=== PATIENT | female | born 1955 | race Caucasian/White ===

== ENCOUNTER 2018-09-24 07:07 | Inpatient (IN) ==
--- NOTE | 2018-08-28 12:30 | PAT Medication Instructions ---
Medication Instructions Date of Service August 28, 2018 Home Medications alendronate 1 tab PO WK aspirin [Ecotrin] 2 - 3 tab PO TID lisinopril 10 mg PO HS pravastatin 40 mg PO HS Continue as directed alendronate 1 tab PO WK ASK your prescriber and surgeon aspirin [Ecotrin] 2 - 3 tab PO TID Take morning of surgery NOTHING TO EAT OR DRINK AFTER MIDNIGHT Take evening before surgery lisinopril 10 mg PO HS pravastatin 40 mg PO HS Other Notes If you have any questions please call us at [phone] or [phone] or [phone] or [phone]
--- NOTE | 2018-08-28 14:18 | Anesthesiology Consultation ---
Date of Service August 28, 2018 Assessment & Plan (1) Encounter for pre-operative examination: Chart Review Chart Review: Acceptable Risk for Surgery and Patient seen in Pre Admission Testing Consults Requested medical ((09/03)) Patient was seen on 09/03/18 for pre-op evaluation. She was started on Keflex for UTI. Note states "Patient is appropriate risk for anticipated surgery." Teaching & Discussion Pre-Anesthesia Teaching/Discussion Notes: Instructed NPO after midnight before surgery, except medications with 15 cc of water. Medication instructions provided according to the PAT guidelines. History Surgery Operation Date: 09/24/18 12:55 Proposed Procedures p Left Anterior Total Hip Arthroplasty - Dustin Madrigal DO Height/Weight Height: 5 ft 3 in Weight: 83.1 kg Allergies Allergy/AdvReac Type Severity Reaction Status Date / Time No Known Allergies Allergy Verified 08/14/18 11:49 Medications Home Medications Medication Instructions Recorded Confirmed Last Taken alendronate 1 tab PO WK 08/14/18 08/14/18 08/11/18 aspirin [Ecotrin] 2 - 3 tab PO TID 08/14/18 08/14/18 08/14/18 lisinopril 10 mg PO HS 08/14/18 08/14/18 08/13/18 pravastatin 40 mg PO HS 08/14/18 08/14/18 08/13/18 Past Medical History Medical History History of Graves' disease Hyperlipidemia Hypertension Kidney stones NO PROBLEMS WITH Osteopenia Past Surgical History Surgical History History of removal of cyst BACK OF NECK Past Anesthesia History No Hx of Anesthesia Complications and No Family Hx of Anesthesia Complications History of PONV No Motion Sickness Screening History of Motion Sickness: Yes Social History Smoking Status: Former smoker tobacco type: cigarettes Smoking cigarettes per day: QUIT 20 YRS AGO (SMOKED 1PPD X 25 YEARS) Do You Dip or Chew Tobacco: No Hx Alcohol Use: Yes Alcohol type: wine alcohol intake frequency: a few times a month Hx Substance Use: No substance use type: does not use Exercise / Class Metabolic Activity II 4-5 Yardwork/Stairs/Walk up hill (Works out 30 minutes 3-5 x week. Able to climb FOS. Denies CP or SOB. ) Review of Systems Patient denies chest pain, shortness of breath, dyspnea on exertion, reflux, cough, wheezing, palpitations. +joint pain (hips) Physical Exam Vital Signs BP: 131/79 P: 74 R: 18 T: 98.1 SPO2: 96% on RA Constitutional + obese ENMT Mouth: + dentures (Upper) Thyromental Distance: > or= 3.5 Finger Breadths (3.5) Mallampati Class: I Bottom partial Neck normal visual inspection and trachea midline; neck extension not limited Respiratory normal respiratory effort Auscultation: lungs clear to auscultation bilaterally Cardiovascular Rate/Rhythm: regular rate and regular rhythm Heart Sounds: no murmur Vessels: no carotid bruit Neurologic moves all extremities Psychiatric Orientation: alert and oriented x 3 Testing Electrocardiogram Date: 08/28/18 Findings: + NSR @ (70) Sinus arrhythmia Chest X-Ray Date: 08/28/18 Findings: + NAD Laboratory Results 08/28/18 14:38 08/28/18 14:38 Blood Type A Positive 08/28/18 14:38 Antibody Screen NEGATIVE 08/28/18 14:38 PT 10.2 Seconds (9.0-12.0) 08/28/18 14:38 INR 1.0 (0.9-1.1) 08/28/18 14:38 APTT 24.1 Seconds (21.0-31.0) 08/28/18 14:38 Hemoglobin A1c 5.5 % (4.5-5.6) 08/28/18 14:38 Urine Color Yellow 08/28/18 Unknown Urine Appearance Clear (Clear) 08/28/18 Unknown Urine pH 5.0 (4.5-7.5) 08/28/18 Unknown Ur Specific [place] 1.020 (1.000-1.030) 08/28/18 Unknown Urine Protein Negative (Negative) 08/28/18 Unknown Urine Glucose (UA) Negative (Negative) 08/28/18 Unknown Urine Ketones Negative (Negative) 08/28/18 Unknown Urine Nitrite Positive (Negative) H 08/28/18 Unknown Ur Leukocyte Esterase 1+ (Negative) H 08/28/18 Unknown Urine WBC (Auto) >30 /hpf (0-5) H 08/28/18 Unknown Urine RBC (Auto) 0-4 /hpf (0-4) 08/28/18 Unknown U Hyaline Cast (Auto) 1-5 /lpf (0-5) 08/28/18 Unknown U Epithel Cells (Auto) 0-5 /lpf (0-5) 08/28/18 Unknown Urine Bacteria (Auto) 2+ (Negative) H 08/28/18 Unknown 08/28/18 Unknown Urine Culture - Final Urine,Clean Catch Escherichia coli Surgeon's office made aware of UTI.
--- NOTE | 2018-08-28 15:06 | XRay Report ---
XR chest Pre-admission PA/Lat CLINICAL HISTORY: 63 years-old Female presenting with preoperative evaluation. TECHNIQUE: PA and lateral views of the chest were obtained. COMPARISON: None. FINDINGS: Atherosclerosis of the aortic arch. Cardiac silhouette normal in size. Lungs and pleural spaces clear . Degenerative changes of the thoracic spine. Upper abdomen normal. IMPRESSION: 1. No acute cardiopulmonary disease. Electronically signed by: Tony Skelton M.D. 08/28/2018 3:05 PM
[2018-08-28 15:16] LABS: Basophils # (auto) 0.02 K/uL (0-0.2); Basophils % (auto) 0.4 %; Eosinophils # (auto) 0.05 K/uL (0-0.5); Hematocrit (blood only) 39.8 % (37-47); Hemoglobin 13.2 g/dL (12.0-16.0); Immature Granulocytes # (auto) 0.01 K/uL (0.00-0.02); Immature Granulocytes % (auto) 0.2 %; Lymphocytes # (auto) 1.62 K/uL (1.2-3.4); Lymphocytes % (auto) 31.2 %; Mean Corpuscular Hgb Conc 33.2 g/dL (32-36); Mean Corpuscular Volume 93.6 fL (80-100); Mean Platelet Volume 11.4 fL (7.4-10.4); Monocytes # (auto) 0.31 K/uL (0.11-0.59); Neutrophils # (auto) 3.18 K/uL (1.4-6.5); Neutrophils % (auto) 61.2 %; Platelet Count 187 K/uL (130-400); RDW Coefficient of Variation 13.6 % (11.5-14.5); RDW Standard Deviation 46.9 fL (36.4-46.3); Red Blood Count 4.25 M/uL (4.2-5.4); White Blood Count 5.19 K/uL (4.8-10.8)
[2018-08-28 15:23] LABS: Appearance Urine Clear (Clear); Bacteria Urine Automated 2+ (Negative); Bilirubin Urine Negative (Negative); Blood Urine 1+ (Negative); Color Urine Yellow; Epithelial Cell Urine Auto 0-5 /lpf (0-5); Glucose Urine UA Negative (Negative); Ketones Urine Negative (Negative); Leukocyte Esterase Urine 1+ (Negative); Nitrite Urine Positive (Negative); Protein Urine Negative (Negative); RBC Urine Automated 0-4 /hpf (0-4); Urobilinogen Urine Negative (Negative); WBC Urine Automated >30 /hpf (0-5)
[2018-08-28 15:25] LABS: Albumin Level 3.9 gm/dl (3.4-5.0); BUN Creatinine Ratio 19.6 (10-20); Calcium 8.8 mg/dl (8.5-10.1); Creatinine Clr Calc Pharmacy 68.4 ml/min; Est GFR (African American) 83.3; Est GFR (Non-African American) 71.9; Potassium 3.9 mmol/L (3.5-5.1)
[2018-08-28 15:27] LABS: Partial Thromboplastin Ratio 0.9; Partial Thromboplastin Time 24.1 Seconds (21.0-31.0); Prothrombin Time 10.2 Seconds (9.0-12.0)
[2018-08-29 05:49] LABS: Estimated Average Glucose 111 mg/dl; Hemoglobin A1C 5.5 % (4.5-5.6)
--- NOTE | 2018-09-22 13:12 | History & Physical Report ---
Date of Service September 22, 2018 Assessment & Plan (1) Degenerative joint disease (DJD) of hip: I have indicated the patient for left anterior total hip replacement. The risks, benefits and complications of surgery were explained to the patient which include but not limited to infection, acute blood loss, DVT/PE, injury to nerves, vessels, bone, soft tissue, arthrofibrosis, chronic pain, failure of the prosthesis, hip dislocation, leg length discrepancy, need for additional surgery, cardiac and pulmonary events and . The patient wished to proceed with surgery and informed consent was obtained at this time. We will plan for ASA 325 BID post-operatively for DVT prophylaxis. Upon discharge the patient will be discharged home with home health services. Appropriate clearances by PCP were obtained. UTI during pre-op tx by PCP with oral abx. History of Present Illness Chief Complaint: Left hip pain/DJD Primary Care Provider: CARLIE PCP The patient is a 63 year old female who presents with complaints of severe left hip pain and DJD. The patient has failed outpatient conservative treatments to this point which included NSAIDs, IA corticosteroid inj, home exercise/walking program. The patient's pain and limited function have progressed to the point where they severely hinder their activities of daily living and they no longer tolerate exercise programs. They are requesting to proceed with total hip replacement surgery. Allergies Allergy/AdvReac Type Severity Reaction Status Date / Time No Known Allergies Allergy Verified 08/14/18 11:49 Home Medications Home Medications Medication Instructions Recorded Confirmed Type alendronate 1 tab PO WK 08/14/18 08/14/18 History aspirin [Ecotrin] 2 - 3 tab PO TID 08/14/18 08/14/18 History lisinopril 10 mg PO HS 08/14/18 08/14/18 History pravastatin 40 mg PO HS 08/14/18 08/14/18 History Past Med/Surg History Medical History History of Graves' disease Hyperlipidemia Hypertension Kidney stones NO PROBLEMS WITH Osteopenia Surgical History History of removal of cyst BACK OF NECK Social History Current Living Situation: Spouse Other Information That Helps Us Care for You: No Feels Safe at Home: Yes Smoking Status: Former smoker Tobacco Type: cigarettes Cigarettes per Day: QUIT 20 YRS AGO (SMOKED 1PPD X 25 YEARS) Do You Dip or Chew Tobacco: No Hx Alcohol Use: Yes Alcohol type: wine Alcohol Intake Frequency: a few times a month Hx Substance Use: No Beliefs That Will Affect Care: None Preferred Language: Finnish Communication Ability: Effective Underwriter Mortgage Loan Required: No Review of Systems All systems reviewed & are unremarkable except as noted in HPI & below Physical Exam 2 Physical Exam: LLE NVSI +EHL/FHL/TA/GS SILT grossly, +2 DP pulse, compartments soft NT, painful limited ROM of the hip. Constitutional: WD/WN, vitals as above Eyes: PERRL, conjunctivae normal, anicteric sclerae ENMT: external ear and nose normal, oropharynx normal Neck: trachea midline, no thyromegaly Respiratory: normal respiratory effort, lungs clear to auscultation Cardiovascular: RRR, no murmur, no edema Gastrointestinal (Abdomen): normal bowel sounds, soft, nontender, no hepatosplenomegaly Musculoskeletal: no cyanosis or clubbing, extremities motor strength 5/5 Skin: no rashes, warm and dry Neurologic: patellar DTR's 2+ bilat, sensation intact Psychiatric: A+Ox3, euthymic affect Lymphatic: no cervical or axillary lymphadenopathy Results & Data Diagnostic Findings Multiple views of the hip demonstrates severe DJD with complete loss of the joint space. +osteophytes, +sclerosis, +subchondral cysts.
[~2018-09-24 07:07] MED LIST: ACETAMINOPHEN 500 MG TAB PO SCH; CEFAZOLIN 2000MG 2,000 MG/15 ML SYR IV SCH; CeleBREX 200 MG CAP PO SCH; FAMOTIDINE 20 MG TAB PO SCH; LR 500ML BOLUS, THEN 15ML/HR IV SCH; METOCLOPRAMIDE HCL 10 MG TABLET PO SCH; ROPIVACAINE 0.5% HCL/PF 150 MG, BUPIVACAINE 0.5% MPF 30 ML, EPINEPHrine 30MG/30ML (OR U... INFIL SCH; TRANEXAMIC ACID 1,000 MG **IV Intra-op IV SCH; TRANEXAMIC ACID 1,000 MG **IV Pre-op IV SCH; dexAMETHasone 4 MG TAB PO SCH
[2018-09-24] MEDS ORDERED: BUPIVACAINE 0.5 % 5 MG/1 ML PF 10ML VIAL ONE (07:47)
--- NOTE | 2018-09-24 07:51 | History & Physical Bridge Note ---
Date of Service September 24, 2018 History & Physical Bridge Note I have examined the patient, reviewed the History & Physical and in the interval since the performance of the History & Physical I have noted the following changes of clinical significance: no changes noted
[2018-09-24] MEDS ORDERED: LIDOCAINE HCL 2% 2 ML VIAL/AMP(20MG/ML) INFIL ONE (08:18)
[2018-09-24] MEDS ORDERED: MIDAZOLAM HCL 1 MG/ML 2ML VIAL ONE ×3 (08:18→10:50)
[2018-09-24] MEDS ORDERED: ONDANSETRON INJ 2 MG/ML 2 ML VIAL ONE (08:18)
[2018-09-24] MEDS ORDERED: PROPOFOL IV EMULSION 10 MG/ML 20 ML VIAL IV ONE ×2 (08:18→10:25)
[2018-09-24] MEDS ORDERED: POVIDONE-IODINE OP SOLN 30 ML BTL ONE (09:22)
[2018-09-24] MEDS ORDERED: ORTHO JOINT ANESTHETIC ONE (09:22)
[2018-09-24] MEDS ORDERED: BACITRACIN INJ 50,000 UNIT VIAL ONE (09:22)
[2018-09-24] MEDS ORDERED: ATROPINE SULFATE 0.1 MG/ML 10ML SYR IV PRN (09:49)
[2018-09-24] MEDS ORDERED: ePHEDrine sulfate 50 MG/ML AMP IV PRN (09:49)
[2018-09-24] MEDS ORDERED: fentaNYL citrate 100 MCG/2 ML VIAL IV PRN (09:49)
[2018-09-24] MEDS ORDERED: ONDANSETRON INJ 2 MG/ML 2 ML VIAL IV PRN ×2 (09:49→13:17)
[2018-09-24] MEDS ORDERED: ePHEDrine sulfate 50 MG/ML SYR ONE (10:39)
--- NOTE | 2018-09-24 11:42 | Post Operative Brief Note ---
Immediate Post Op Note v1 Date of Surgery September 24, 2018 Pre & Post Diagnosis Operation Date: 09/24/18 09:35 Pre-Op Diagnosis: Left Hip Osteoarthritis Post-Op Diagnosis: Left Hip Osteoarthritis Procedure Operation Date: 09/24/18 09:35 Actual Procedures p Left Anterior Total Hip Arthroplasty(Left) - Dustin Madrigal DO Surgeon Dustin Madrigal DO Satellite Dish Repairer Gautam Muhammad Estimated Blood Loss 85 Findings Consistent with Post-Op Diagnosis Fluids 1200 Specimens femoral head Drains Hemovac Drain Anesthesia Type Spinal MAC Complications none Disposition Disposition: Recovery Room Overlapping Procedure I was present for: the critical portions of procedure. I was immediately available: during the entire case. Back up surgeon: was not required during procedure.
--- NOTE | 2018-09-24 12:00 | Operative Report ---
Post Operative Report Pre & Post Diagnosis Operation Date: 09/24/18 09:35 Pre-Op Diagnosis: Left Hip Osteoarthritis Post-Op Diagnosis: Left Hip Osteoarthritis Procedure Operation Date: 09/24/18 09:35 Actual Procedures p Left Anterior Total Hip Arthroplasty(Left) - Dustin Madrigal DO Surgeon Dustin Madrigal DO Director Public Gautam Muhammad Estimated Blood Loss 85 Findings Consistent with Post-Op Diagnosis Fluids 1200 cc Specimens Femoral head Anesthesia Type Spinal MAC Complications none Disposition Disposition: Recovery Room Indications The patient is a 63-year-old female who presents with severe progressive left hip DJD who has failed outpatient conservative treatments. I indicated the patient for a anterior total hip replacement and the risks and benefits were explained in detail which include but not limited to infection, bleeding, blood clot, damage to surrounding bone, nerves, vessels, soft tissue, hip dislocation, failure of the prosthesis, leg length discrepancy, need for additional surgery and . The patient agreed to proceed with replacement of the hip and informed consent was obtained. Appropriate clearances were obtained. Description of Procedure COMPONENTS USED: [employer] hip system: Acetabulum size 50, femur size 6 standard offset, femoral head 32-3, liner 32 x 50, acetabular screw 25. DESCRIPTION OF PROCEDURE: Following satisfactory spinal anesthesia, the patient was placed supine on the OR table. The right leg was placed in the well leg garrison and the left leg in the traction device. The left leg was prepared with ChloraPrep and draped sterilely. Following a surgical time-out, an anterior approach in the interval between the sartorius and tensor muscles was completed. Circumflex femoral vessels were identified, tied and ligated. The anterior capsular fat pad was removed and the capsulotomy was performed revealing the arthritic femoral neck and head. A femoral neck cut was made with reciprocating saw and the bone fragments removed. The acetabular self-retraining retractor was placed. Acetabular reaming was completed under fluoroscopic guidance, a 50 shell was impacted into an anatomic position and secured with a dome screw. Local anesthetic was placed and following irrigation, the polyethylene liner was placed. The femur was placed into position of external rotation, extension and adduction. Femoral canal was prepared up to the size 6 standard offset. Trial reduction with a -3 neck length head showed good soft tissue tension, leg lengths restored, and good fit and fill of the proximal canal using fluoroscopic landmarks. The hip was dislocated. The trial component was removed. The final implant was placed. The hip was irrigated with sterile saline soluation and reduced. A Betadine soak was performed. After 3 minutes, the hip was once more irrigated with copious sterile saline solution with bacitracin. Ifeoma-incisional soft tissue was injected utilizing [place] [employer] which includes a combination of Ropivicaine 0.5% 150mg, Bupivicaine 0.5%/Epinephrine 1:200,000 30ml, Toradol 30mg, Dexamethasone 4mg, Ketamine 10mg, Clonidine 100mcg and NSS 30ml solution. The capsule was then closed with 1-0 Vicryl interrupted figure of eight sutures. The fascia was closed with a running suture of #1 V-locl, the subcutaneous tissues with 2-0 Vicryl and the skin with a running subcuticular stitch of 3-0 V-Loc. Dermabond prineo and a dry dressing, Prevena incisional vac were applied. The patient tolerated the procedure well and was transported to PACU in stable condition. Due to the complex nature of the procedure, the entire surgery was performed with the operational assistance of Gautam Muhammad PA-C. The sound assistant, under direct supervision, was involved in the actual performance of all aspects of the surgical procedure including patient positioning, hemostasis, tissue retraction, instrument management and wound closure. I attest to the content of the Intraoperative Record and any orders documented therein. Any exceptions are noted below.
--- NOTE | 2018-09-24 12:44 | Anesthesiology Progress Note ---
Date of Service September 24, 2018 Anesthesia Post Procedure Vital Signs Vital Signs: Temp Pulse Pulse Pulse Resp BP BP 09/24/18 12:38 36.5 C 09/24/18 12:35 66 23 116/50 L 09/24/18 12:31 62 12 09/24/18 12:30 62 17 110/52 L 09/24/18 12:25 61 21 107/50 L 09/24/18 12:20 62 15 111/52 L 09/24/18 12:15 36.1 C L 63 66 17 106/54 L 113/50 L 09/24/18 12:14 64 14 113/50 L 09/24/18 08:00 37.1 C 76 20 137/50 L Pulse Ox 09/24/18 12:38 96 09/24/18 12:35 97 09/24/18 12:31 98 09/24/18 12:30 96 09/24/18 12:25 96 09/24/18 12:20 97 09/24/18 12:15 99 09/24/18 12:14 98 09/24/18 08:00 98 Pain Intensity Left Hip: Pain Intensity: 6 Notes Mental Status: alert / awake / arousable and participated in evaluation Nausea / Vomiting: adequately controlled Pain: adequately controlled Airway Patency, RR, SpO2: stable & adequate BP & HR: stable & adequate Hydration State: stable & adequate Neuraxial Anesthesia: was administered and sensory block is resolving Anesthetic Complications: no major complications apparent
--- NOTE | 2018-09-24 13:04 | XRay Report ---
XR hip 1V LT w pelvis CLINICAL HISTORY: Postoperative evaluation. COMPARISON: None FINDINGS: Alignment of the total left hip arthroplasty is anatomic. There is no fracture or unexpect ed radiopaque foreign body. There is an acetabular screw. IMPRESSION: Expected findings following total left hip arthroplasty. Electronically signed by: Slava Curry M.D. 09/24/2018 1:03 PM
[2018-09-24] MEDS ORDERED: OXYCODONE HCL IR 5 MG TAB (IMMEDIATE RELEASE) PO PRN (13:17)
[2018-09-24] MEDS ORDERED: BISACODYL 10 MG SUPP PR PRN (13:17)
[2018-09-24] MEDS ORDERED: MAGNESIUM HYDROXIDE SUSP 30 ML UDC PO PRN (13:17)
[2018-09-24] MEDS ORDERED: HYDROmorphone INJ 0.5 MG/0.5 ML SYR IV PRN (13:17)
[2018-09-24] MEDS ORDERED: NALOXONE HCL 0.4 MG/1 ML VIAL/CARP IV PRN (13:17)
[2018-09-24] MEDS ORDERED: METOCLOPRAMIDE HCL INJ 5 MG/ML 2 ML VIAL IV PRN (13:17)
--- NOTE | 2018-09-24 14:56 | Fluoroscopy Report ---
FL hip LT 1V CLINICAL HISTORY: LEFT ANTERIOR HIP COMPARISON STUDY: None FLUOROSCOPY TIME: 60 seconds NUMBER OF FLUOROSCOPIC IMAGES: 3 FINDINGS: Anatomic alignment post total left hip arthroplasty IMPRESSION: Anatomic alignment post total left hip arthroplasty. The above report was generated using voice recognition software. It may contain grammatical, syntax or spelling errors. Electronically signed by: Ariel Clay M.D. 09/24/2018 2:54 PM
[2018-09-24] MEDS: SODIUM CHLORIDE 0.9% 1000ML 1,000 ML IV SCH (16:29)
[2018-09-24] MEDS: CEFAZOLIN 2000MG 2,000 MG/15 ML SYR IV SCH (16:35)
[2018-09-24] MEDS: KETOROLAC 30 MG/ML VIAL IV SCH ×2 (16:35→22:37)
--- NOTE | 2018-09-24 18:34 | Orthopedic Progress Note ---
Date of Service September 24, 2018 Assessment & Plan (1) Degenerative joint disease (DJD) of hip: s/p left anterior KEYSHA -ancef x 24 -DVT ppx ASA BID, SCDs, TEDS -WBAT LLE -PT/OT -PO XR demonstrates a well aligned well fixed orthopedic prosthesis without evidence of fracture or dislocation -am labs -DC planning: home with HH Subjective Post Operative Progress Note Patient seen sitting up in chair and bedside, comfortable, denies complaints, pain well controlled, no acute issues. Physical Exam 2 Vital Signs (Past 24 Hours): Last Vital Signs Temp 36.7 C 09/24/18 16:00 Pulse 84 09/24/18 16:00 Resp 17 09/24/18 16:00 BP 134/66 09/24/18 16:00 Pulse Ox 97 09/24/18 16:00 Physical Exam: LLE NVSI +EHL/FHL/TA/GS SILT grossly, +2 DP pulse, compartments soft NT, dressing cdi. Constitutional: WD/WN, vitals as above
[2018-09-24] MEDS: DOCUSATE SODIUM 100 MG CAP PO SCH (20:05)
[2018-09-24] MEDS ORDERED: LISINOPRIL 10 MG TAB PO SCH (21:00)
[2018-09-24] MEDS ORDERED: PRAVASTATIN SOD 40 MG TAB PO SCH (21:00)
[2018-09-24] MEDS ORDERED: SENNA 8.6 MG TAB PO SCH (21:00)
[2018-09-25] MEDS ORDERED: ACETAMINOPHEN SOLN 500 MG/15.62 ML UDP PO SCH (00:15)
[2018-09-25] MEDS: SODIUM CHLORIDE 0.9% 1000ML 1,000 ML IV SCH (00:31)
[2018-09-25] MEDS: CEFAZOLIN 2000MG 2,000 MG/15 ML SYR IV SCH (00:31)
[2018-09-25] MEDS: ACETAMINOPHEN 500 MG TAB PO SCH ×2 (00:32→09:07)
[2018-09-25] MEDS: KETOROLAC 30 MG/ML VIAL IV SCH ×2 (05:25→09:08)
[2018-09-25 06:08] LABS: Hematocrit (blood only) 32.4 % (37-47); Hemoglobin 10.8 g/dL (12.0-16.0); Immature Granulocytes # (auto) 0.02 K/uL (0.00-0.02); Immature Granulocytes % (auto) 0.2 %; Lymphocytes # (auto) 1.15 K/uL (1.2-3.4); Lymphocytes % (auto) 10.8 %; Mean Corpuscular Hgb Conc 33.3 g/dL (32-36); Mean Corpuscular Volume 93.6 fL (80-100); Mean Platelet Volume 10.7 fL (7.4-10.4); Monocytes # (auto) 0.66 K/uL (0.11-0.59); Monocytes % (auto) 6.2 %; Neutrophils # (auto) 8.77 K/uL (1.4-6.5); Neutrophils % (auto) 82.8 %; Platelet Count 146 K/uL (130-400); RDW Coefficient of Variation 14.1 % (11.5-14.5); RDW Standard Deviation 47.8 fL (36.4-46.3); Red Blood Count 3.46 M/uL (4.2-5.4)
[2018-09-25 06:41] LABS: BUN Creatinine Ratio 21.4 (10-20); Creatinine Clr Calc Pharmacy 71.2 ml/min; Potassium 4.1 mmol/L (3.5-5.1)
[2018-09-25] MEDS ORDERED: Nursing to Pharmacy Communication ONE (07:17)
--- NOTE | 2018-09-25 07:26 | Anesthesiology Progress Note ---
Date of Service September 25, 2018 Anesthesia Post Procedure Vital Signs Vital Signs: Temp Pulse Pulse Pulse Pulse Resp BP 09/25/18 03:22 36.7 C 70 16 09/24/18 22:48 36.7 C 77 16 09/24/18 20:00 36.7 C 87 17 09/24/18 16:00 36.7 C 84 17 09/24/18 15:06 36.4 C L 87 16 09/24/18 14:00 36.7 C 76 17 09/24/18 13:50 36.3 C L 65 16 09/24/18 13:30 72 16 09/24/18 13:00 36.5 C 64 16 09/24/18 12:50 65 18 117/50 L 09/24/18 12:45 61 21 99/50 L 09/24/18 12:41 62 18 09/24/18 12:40 62 16 101/52 L 09/24/18 12:38 36.5 C 09/24/18 12:35 66 23 116/50 L 09/24/18 12:31 62 12 09/24/18 12:30 62 17 110/52 L 09/24/18 12:25 61 21 107/50 L 09/24/18 12:20 62 15 111/52 L 09/24/18 12:15 36.1 C L 63 66 17 106/54 L 09/24/18 12:14 64 14 113/50 L 09/24/18 08:00 37.1 C 76 20 BP Pulse Ox 09/25/18 03:22 94/51 L 94 09/24/18 22:48 127/68 98 09/24/18 20:00 166/79 H 98 09/24/18 16:00 134/66 97 09/24/18 15:06 131/77 98 09/24/18 14:00 112/69 99 09/24/18 13:50 118/63 100 09/24/18 13:30 113/65 99 09/24/18 13:00 101/64 99 09/24/18 12:50 97 09/24/18 12:45 97 09/24/18 12:41 96 09/24/18 12:40 96 09/24/18 12:38 96 09/24/18 12:35 97 09/24/18 12:31 98 09/24/18 12:30 96 09/24/18 12:25 96 09/24/18 12:20 97 09/24/18 12:15 113/50 L 99 09/24/18 12:14 98 09/24/18 08:00 137/50 L 98 Pain Intensity Left Hip: Pain Intensity: 0 Notes Mental Status: alert / awake / arousable and participated in evaluation Patient Amnestic to Procedure: Yes Nausea / Vomiting: adequately controlled Pain: adequately controlled Airway Patency, RR, SpO2: stable & adequate BP & HR: stable & adequate Hydration State: stable & adequate Neuraxial Anesthesia: was administered and sensory block resolved Anesthetic Complications: no major complications apparent and Pt Satisfied with anesthetic care
--- NOTE | 2018-09-25 08:20 | Progress Note ---
DATE: 09/25/2018 SUBJECTIVE: The patient is postop day 1 status post left anterior total hip arthroplasty by Dr. Madrigal. She is currently sitting up in bed and is awake and alert and oriented. Her is with her this morning. She states that she had a good evening and that her pain is controlled at this time. She does state that she has some difficulty doing straight leg raise at this time because of leg weakness; however, she has no other complaints. She denies shortness of breath, chest pain, lightheadedness. She denies calf tenderness. OBJECTIVE: Prevena dressing is intact and functioning. She has some mild bruising noted around the incision area which is normal for the surgery. Thigh is soft and nontender. Calves were soft, nontender. Neurovascularly intact. Toes were mobile. Hip is located and she has good strength with dorsiflexion and plantarflexion. ASSESSMENT: Postop day #1 status post left anterior total hip arthroplasty. PLAN: The patient will be started on PT and OT protocols this morning. She will be continued on DVT prophylaxis with aspirin b.i.d., SCDs and MARCOS hose. Continue current pain regimen. We will stop back and check on her later this morning to see how she is progressing with her physical therapy. Of note, hemoglobin is 10.8 and vital signs showed BP of 94/51, pulse 70, respirations 16 and she is afebrile.
[2018-09-25] MEDS ORDERED: MULTIVITAMIN TAB PO SCH (09:00)
[2018-09-25] MEDS ORDERED: ASPIRIN 325 MG ECTAB PO SCH (09:00)
[2018-09-25] MEDS: DOCUSATE SODIUM 100 MG CAP PO SCH (09:07)
[2018-09-25] MEDS ORDERED: CeleBREX 200 MG CAP PO SCH (21:00)
--- NOTE | 2018-09-29 19:10 | Discharge Summary ---
Date of Service September 29, 2018 Admission HPI Per Admitting Provider The patient is a 63 year old female who presents with complaints of severe left hip pain and DJD. The patient has failed outpatient conservative treatments to this point which included NSAIDs, IA corticosteroid inj, home exercise/walking program. The patient's pain and limited function have progressed to the point where they severely hinder their activities of daily living and they no longer tolerate exercise programs. They are requesting to proceed with total hip replacement surgery. Principal Diagnosis Left anterior total hip replacement Discharge Exam LLE NVSI +EHL/FHL/TA/GS SILT grossly, +2 DP pulse, compartments soft NT, dressing cdi. Constitutional WD/WN, vitals as above Eyes PERRL, conjunctivae normal, anicteric sclerae ENMT external ear and nose normal, oropharynx normal Neck trachea midline, no thyromegaly Respiratory normal respiratory effort, lungs clear to auscultation Cardiovascular RRR, no murmur, no edema Gastrointestinal (Abdomen) normal bowel sounds, soft, nontender, no hepatosplenomegaly Musculoskeletal no cyanosis or clubbing, extremities motor strength 5/5 Skin no rashes, warm and dry Neurologic patellar DTR's 2+ bilat, sensation intact Psychiatric A+Ox3, euthymic affect Lymphatic no cervical or axillary lymphadenopathy Discharge Data Allergies Allergy/AdvReac Type Severity Reaction Status Date / Time No Known Allergies Allergy Verified 09/24/18 07:57 Consultations 09/25/18 08:00 Consult Case Management - Discharge Planning Routine Procedures Performed Operation Date: 09/24/18 09:35 Actual Procedures p Left Anterior Total Hip Arthroplasty(Left) - Dustin Madrigal DO Ordered Studies 09/24/18 09:35 FL fluoroscopy <1hr Routine FL hip LT 1V Routine Hospital Course (1) Degenerative joint disease (DJD) of hip: The patient is a 63 -year-old female who presents with long standing history of severe left hip DJD and failed outpatient conservative treatments including NSAIDs, bracing, injections and home walking/exercise program. The patient's symptoms have progressed to the point where it has been difficult to perform even normal activities of daily living. I indicated the patient for a left anterior total hip arthroplasty, the risks, benefits and complications of the procedure include but not limited to infection, bleeding, damage to bone, nerves, vessels, surrounding soft tissue, may develop blood clots, loss of function, leg length discrepancy, dislocation, failure of the components, loosening of the components, the need for additional surgery and . The patient wished to proceed with surgery at this time and informed consent was obtained. Hospital Course: On 09/24/18 the patient was taken to the operating room, adequate anesthesia administered and underwent a left anterior total hip arthroplasty. The patient tolerated the procedure well and was taken to the PACU in stable condition. Post-operatively the patient was started on a DVT ppx medication and given appropriate IV antibiotics. Consults were placed to physical therapy, occupational therapy and case management. On POD#1, the patient did well overnight and their pain was well controlled. Labs were drawn and the Hgb was 10.8. The patient progressed well with PT. Dressings were changed at this time and the incision was clean, dry and intact. The patients hospital stay was relatively uneventful and they were deemed stable by the orthopedic team and consultants to be discharged home with HH on 09/25/18. Discharge Instructions: Upon discharge the patient may weight bear as tolerates through their operative extremity. They were instructed to keep the incision clean and dry at all times. The patient may shower but should not submerge the incision, avoid bathing, pools and hot tubes. The patient was given a script for pain medication and should take as instructed. The patient was given a script for DVT ppx ASA 325mg BID and should take as directed. The patient was instructed to not drive or travel for long distances until cleared to do so. If the patient develops any symptoms of fevers, chills, nausea, vomiting, increased redness, swelling, pain or drainage from the surgical site, they should notify the office and/or proceed to the nearest emergency room. The patient should follow up in 10-14 days after surgery for their routine post-operative follow-up appointment and should call the office to confirm the date and time. s/p left anterior KEYSHA -ancef x 24 -DVT ppx ASA BID, SCDs, TEDS -WBAT LLE -PT/OT -PO XR demonstrates a well aligned well fixed orthopedic prosthesis without evidence of fracture or dislocation -am labs -DC planning: home with HH Total Time Total Time Spent Total Time Spent (In Minutes): 45 minutes Total Time Includes: Examination of the Patient, Discharge Planning, Medication Reconciliation and Communication With Other Providers Discharge Plan Discharge Items Patient Disposition: Home - Home Health Services Reason For Visit: Left Hip Osteoarthritis Discharge Diagnosis: Left anterior hip replacement Discharge Goals: Decrease discomfort, Improve function, Increase independence, Specific goals and Therapeutic intervention Activity: Per 'Additional Instructions' section Lifting: Wait until after follow-up appointment Bathing Comment: No bathing, pools or hot tubs Sexual Activity: Wait until after follow-up appointment Exercise/Sports: Wait until after follow-up appointment Driving/Machine Use Comment: Do not drive till cleared by your surgeon Weightbearing: Left weightbearing Non-emergency contact: Primary Care Provider and Surgeon Call non-emergency contact if: you have any medication questions, your symptoms worsen, your pain is not controlled, your pain is worsening, your pain is unusual for you, your pain is concerning for you, you have a fever, your temperature is above 101, your wound has increased redness, your wound has increased drainage and your wound pain has increased Follow-up/Referrals: [facility]PCARLIE [Primary Care Provider] - Diet: Regular Addtl Provider Instructions: ACTIVITY RECOMMENDATIONS: SELF CARE INSTRUCTIONS AFTER TOTAL HIP REPLACEMENT : Direct Anterior Approach Until the incision and soft tissues around your hip have healed, there is a possibility that the hip prosthesis could dislocate. A. Hip flexion ( Up & Down out of chair or steps ) may be difficult. This is normal. B. Numbness in front of the thigh is also normal for a few weeks. C. Use hand rails when walking on stairs. D. Wear low heeled shoes with non-slip soles. E. Be sure that your floors are free of things that could trip you - throw rugs, electrical cords, small objects. Avoid wet and waxed floors, especially with crutches and canes. F. Try to walk several times a day with rest periods between. G. Continue with all the exercises taught to you in the hospital. Again, make walking a part of your daily routine. SPECIAL CARE INSTRUCTIONS: VERY IMPORTANT TO READ AND REVIEW A. You may still be at risk for phlebitis and blood clots. 1. Wear surgical stockings (MARCOS hose) for 2 weeks after surgery to improve circulation and reduce swelling. 2. Take Aspirin 325mg twice daily for 4 weeks or as directed by your doctor. This is your blood thinner. 3. High risk patients may be prescribed a stronger blood thinner if necessary. 4. If you are on Coumadin normally, your family doctor/health analytics consultant should monitor your blood work. Expect a phone call the day of or the day after bloodwork is drawn to adjust your dosage. B. You must take antibiotics before having dental work, bladder, bowel and other surgery. Your doctor will provide you with a permanent card to carry describing precautions. C. Call [facility] if you have a fever, redness or swelling around the incision, cloudy drainage from incision, or sudden increase in pain in your hip, not relieved by your regular pain medication. D. Please call the office at if you have any concerns or questions about your operation or recovery. * YOU MAY SHOWER, NO TUB BATHS UNTIL CLEARED BY YOUR DOCTOR. - Keep an extra close eye on the top portion of your incision. Be sure to keep clean & dry. * WEAR MARCOS HOSE 20 HOURS PER DAY FOR 2 WEEKS. * YOU MAY PROGRESS FROM A WALKER, TO A CANE, TO INDEPENDENT AT YOUR OWN PACE. * MOST PATIENTS WILL HAVE HOME NURSING FOR THERAPY. IF YOU DECIDE TO DO OUTPATIENT PHYSICAL THERAPY, PLEASE SCHEDULE THIS 3 TIMES PER WEEK. * DERMABOND Prineo- This is a mesh tape dressing that is covered with glue. It should remain in place until the incision is properly healed, usually 10-14 days. This dressing is designed to naturally slough off. You may trim the excess mesh tape as it peels off. Incision may be briefly wet in a shower. Dry immediately by blotting with a clean, dry towel. Do not bath or swim until instructed by your doctor. Do not scratch, rub, or pick at the dressing. Do not apply any topical ointments or lotions until dressing is completely removed and/or instructed by your doctor. There may be a small piece of suture material at one end of your incision. Do not pull or trim this. If it is bothersome or catching on clothing, you may cover it with a band-aid. Prevena- This is a large suction dressing covering your incision. This will help pull any excess drainage from the wound and allow your incision to heal properly. You may shower with this if you can keep the unit outside of the shower. If any bleeding or leakage is noted please call your doctor's office. This will remain on your incision for 7 days and then should be removed. This can be done yourself or by the home nursing staff if applicable. The entire unit is disposable once removed. Once removed, keep incision clean and dry. If redness or drainage is noted, please call your surgeon. FOLLOW UP VISIT: If appointment is not already scheduled: Please call [facility] to make a follow-up appointment for 2 weeks after your surgery at . Prescriptions: New aspirin 325 mg Tablet,Delayed Release (Dr/Ec) 325 mg PO BID 28 Days Qty: 56 RF: 0 celecoxib [Celebrex] 200 mg Capsule 200 mg PO BID PRN (Reason: pain) Qty: 28 RF: 0 oxycodone 5 mg Tablet 5 mg PO Q6H MDD 6 tabs PRN (Reason: pain) Qty: 30 RF: 0 sennosides [Senokot] 8.6 mg Tablet 17.2 mg PO HS PRN (Reason: constipation) Qty: 14 RF: 0 acetaminophen [Pain Reliever] 500 mg Tablet 1,000 mg PO Q8H PRN (Reason: pain) Qty: 90 RF: 0 Continued pravastatin 40 mg Tablet 40 mg PO HS RF: 0 alendronate 35 mg Tablet 1 tab PO WK RF: 0 aspirin [Ecotrin] 325 mg Tablet,Delayed Release (Dr/Ec) 2 - 3 tab PO TID RF: 0 lisinopril 10 mg Tablet 10 mg PO HS RF: 0 Stand-Alone Forms: [facility] [employer], Opio[facility] Pain [facility] Discharge Orders: Discharge Order (Routine); Ordered 09/25/18 Ordered By: Gautam Muhammad Admission Data Admit Date/Time: 09/24/18 13:02 Attending Provider: Dustin Madrigal Admit Provider: Dustin Madrigal Primary Care Provider: PCP,NO Service: Surgical Services Other Interventions: Discharge Summary Assessment (RN) Last Done: 09/25/18 13:41 DC Date/Time DO NOT enter until pt leaves facility: 09/25/18 14:14
== END 2018-09-25 14:14 | disposition home health service (06) | DRG 470 ==
LOC: ASU 07:07 → 3E 13:02